=== PATIENT | female | born 1980 | race African-American/Black ===

== ENCOUNTER 2018-08-07 11:50 | Inpatient (IN) | payer BC, OTHER ==
[2018-08-07] MEDS ORDERED: ELECTROLYTE-148 SOLN 1,000 ML IV SCH (12:00)
[2018-08-07 12:34] LABS: BASO % 0.2 % (0-2.0); HEMATOCRIT 35.7 % (32.4-45.2); HEMOGLOBIN 12.5 GM/dL (10.7-15.3); LYMPH % 9.8 % (8-40); MCH 31.3 pg (25.7-33.7); MCHC 35.1 g/dl (32.0-36.0); MEAN CELL VOLUME 89.1 fl (80-96); MEAN PLT VOLUME 9.9 fl (7.5-11.1); MONO % 7.3 % (3.8-10.2); NEUT % 82.7 % (42.8-82.8); PLATELET COUNT 207 K/MM3 (134-434); RDW 14.2 % (11.6-15.6); WHITE BLOOD COUNT 15.3 K/mm3 (4.0-10.0)
[2018-08-07 12:45] LABS: INR 0.87 (0.83-1.09); PROTHROMBIN TIME (PATIENT) 10.2 SEC (9.7-13.0)
[2018-08-07 12:50] VITALS: BMI 30.9
[2018-08-07] MEDS ORDERED: FENTANYL/BUPIVACAINE/NS/PF - PCEA - 50 ML DISP.SYRIN EP ONE ×3 (13:01→18:39)
--- NOTE | 2018-08-07 13:05 | HP ---
Past Medical History - Admission Chief Complaint: contractions History of Present Illness: 38 y/o P0 female with SIUP at 39.3 weeks gestation, c/o contractions. Was seen on 08/03/18 in hospital, cervix was closed, states contractions continued off and on since then. Pt seen in office today, cervix was 7cm dilated with bulging membranes. Advised to go to hospital at that time. complicated only by AMA. GBS negative. History Source: Patient, Medical Record Limitations to Obtaining History: No Limitations - Past Medical History Cardiovascular: No: HTN Pulmonary: No: COPD Gastrointestinal: No: GERD Hepatobiliary: No: Hepatitis B, Hepatitis C Renal/: No: UTI Reproductive: No: Ectopic , PID ...: 3 ...Para: 0 ...Term: 0 ...: 0 ...Spon : 1 ...Induced : 1 ...Multiple Gestation: 0 ...LMP: 11/04/17 ... Weeks Gestation by Dates: 39.3 ...EDC by Dates: 08/11/18 ...EDC by Sono: 08/11/18 Heme/Onc: No: Anemia Infectious Disease: No: HIV, MRSA, STD's Psych: No: Anxiety, Bipolar, Depression Endocrine: No: Hyperthyroidism - Past Surgical History Past Surgical History: Yes: None Hx Myomectomy: No Hx Transabdominal Cerclage: No - Smoking History Smoking history: Never smoked Have you smoked in the past 12 months: No - Alcohol/Substance Use Hx Alcohol Use: No - Social History Usual Living Arrangement: Yes: With Spouse ADL: Independent History of Recent Travel: No Home Medications - Allergies Allergies/Adverse Reactions: Allergies Allergy/AdvReac Type Severity Reaction Status Date / Time No Known Allergies Allergy Verified 08/03/18 15:06 - Home Medications Home Medications: Ambulatory Orders One Tablet 1 tab PO DAILY 08/03/18 Review of Systems - Review of Systems Constitutional: reports: No Symptoms Eyes: reports: No Symptoms HENT: reports: No Symptoms Neck: reports: No Symptoms Cardiovascular: reports: No Symptoms Respiratory: reports: No Symptoms Gastrointestinal: reports: No Symptoms Genitourinary: reports: No Symptoms Breasts: reports: No Symptoms Reported Musculoskeletal: reports: No Symptoms Integumentary: reports: No Symptoms Neurological: reports: No Symptoms Endocrine: reports: No Symptoms Hematology/Lymphatic: reports: No Symptoms Psychiatric: reports: No Symptoms Physical Exam - Maternity Vital Signs: Vital Signs Temperature 97.7 F 08/07/18 11:50 Pulse Rate 104 H 08/07/18 11:50 Respiratory Rate 18 08/07/18 11:50 Blood Pressure 129/87 08/07/18 11:50 O2 Sat by Pulse Oximetry (%) Constitutional: Yes: Well Nourished, No Distress, Calm Eyes: Yes: Conjunctiva Clear, EOM Intact HENT: Yes: Atraumatic, Normocephalic Neck: Yes: Supple, Trachea Midline Cardiovascular: Yes: Regular Rate and Rhythm Lungs: Clear to auscultation Breast(s): Yes: WNL - Abdominal Exam/OB Fundal Height: 39 Number of Fetuses: Single Presentation: Vertex Contractions: Yes Regularity: Regular Intensity: Mod/Strong Monitor Mode: External Heart Rate (range): 125 Category: I Accelerations: Uniform Decelerations: None - Vaginal Exam/OB Vaginal Bleediing: No Amniotic Membrane Status: Bulging Presentation: Vertex/Position Station: -2 - Physical Exam Psychiatric: Yes: Alert, Oriented - Labs Lab Results: CBC, BMP 08/07/18 12:10 Hemorrhage Risk Assessment - Risk Factors Medium Risk Factors: Yes: None High Risk Factors: Yes: None Risk Score: 1 Risk Level: Medium Risk Problem List - Problems (1) Active labor at term Code(s): OAD1650 - Assessment/Plan 38 y/o P0 with SIUP at 39 weeks, labor AFVSS FHTS cat 1 labor, admitted to L&D, for epidural - anesthesia aware GBS negative continue expectant management
[2018-08-07 13:06] LABS: ANION GAP 15 MMOL/L (8-16); BLOOD UREA NITROGEN 6 mg/dL (7-18); CALCIUM 8.9 mg/dL (8.5-10.1); CHLORIDE 126 mmol/L (98-107); CO2 23 mmol/L (21-32); CREATININE 0.7 mg/dL (0.55-1.3); GLUCOSE,RANDOM 82 mg/dL (74-106); POTASSIUM 4.7 mmol/L (3.5-5.1)
[2018-08-07 13:10] LABS: SODIUM 163 mmol/L (136-145)
[2018-08-07] MEDS ORDERED: NALOXONE HCL 0.4 MG/ML VIAL IVPUSH PRN (13:49)
--- NOTE | 2018-08-07 13:55 | PN ---
Ante-Partal Exam - Subjective Vital Signs: Vital Signs Temperature 97.7 F 08/07/18 11:50 Pulse Rate 104 H 08/07/18 11:50 Respiratory Rate 18 08/07/18 11:50 Blood Pressure 129/87 08/07/18 11:50 O2 Sat by Pulse Oximetry (%) Bleeding: Yes Headache: No Visual changes: No Right upper quadrant pain: No - Contractions Contractions: Yes Regularity: Regular Intensity: Mod/Strong - Exam during Labor Heart Rate: 130 Variability: Moderate Category: I Monitor Accelerations: Present Monitor Decelerations: None Exam: Vaginal Dilatation (cm): 8 Effacement (%): 100 Amniotic Membrane Status: Ruptured (AROM for light meconium stained fluid) Presentation: Vertex Station: -2 - Assessment/Plan Assessment/Plan: 38 y/o with SIUP at 39.3 weeks, active labor s/p AROM s/p epidural pitocin augmentation serum Na 163, will repeat as other labs WNL, possible falsly elevated continue active management
[2018-08-07] MEDS ORDERED: OXYTOCIN 30 UNITS in 0.9% NS 30 UNIT/500 ML INFUS.BAG IVPB SCH (14:00)
[2018-08-07] MEDS ORDERED: FENTANYL/BUPIVACAINE/NS/PF - PCEA - 50 ML DISP.SYRIN EP SCH (14:00)
--- NOTE | 2018-08-07 15:12 | PN ---
Ante-Partal Exam - Subjective Subjective: Pt seen/examined feeling some discomfort on the left side Vital Signs: Vital Signs Temperature 98.7 F 08/07/18 14:00 Pulse Rate 85 08/07/18 14:15 Respiratory Rate 18 08/07/18 14:15 Blood Pressure 120/78 08/07/18 14:15 O2 Sat by Pulse Oximetry (%) 98 08/07/18 14:15 Bleeding: No Headache: No Visual changes: No Right upper quadrant pain: No Pain (scale 1-10): 2 - Contractions Contractions: Yes Regularity: Regular Intensity: Mod/Strong - Exam during Labor Heart Rate: 130 Variability: Moderate Category: II Monitor Accelerations: Present Monitor Decelerations: Variable Exam: Vaginal Dilatation (cm): 8 Effacement (%): 100 Amniotic Membrane Status: Ruptured Amniotic Fluid: Meconium Stained (light meconium) Presentation: Vertex Station: -2 - Assessment/Plan Assessment/Plan: 38 y/o P0 with SIUP at 39 weeks active labor s/p AROM, having recurrent variable decelerations, still moderate variability and accels/good scalp stim continue close observation if continues to have decelerations without cervical change may need to discuss delivery
[2018-08-07] MEDS ORDERED: BUPIVACAINE HCL/PF 0.25% (2.5MG/ML) 10 ML VIAL ONE (15:57)
[2018-08-07] MEDS ORDERED: OXYTOCIN 20 UNITS in 0.9% NS 20 UNIT/1,000 ML INFUS.BAG IV ONE (16:50)
[2018-08-07] MEDS ORDERED: LIDOCAINE HCL 1% PRESERVATIVE FREE - 30ML VIAL ONE (16:50)
--- NOTE | 2018-08-07 19:09 | PN ---
Ante-Partal Exam - Subjective Subjective: Pt comfortable with contractions. Vital Signs: Vital Signs Temperature 98.2 F 08/07/18 17:00 Pulse Rate 113 H 08/07/18 18:45 Respiratory Rate 18 08/07/18 18:45 Blood Pressure 141/83 08/07/18 18:45 O2 Sat by Pulse Oximetry (%) 98 08/07/18 18:45 Bleeding: Yes Bleeding Description: Mild Headache: No Visual changes: No Right upper quadrant pain: No - Contractions Contractions: Yes Regularity: Regular Intensity: Mod/Strong - Exam during Labor Heart Rate: 125 Variability: Moderate Category: I Monitor Accelerations: Absent Monitor Decelerations: None Exam: Vaginal Dilatation (cm): 10 Effacement (%): 100 Presentation: Vertex Station: 0 - Assessment/Plan Assessment/Plan: pt fully dilated at approx 1830, began pushing at that time with little progress. Will allow passive descent and retry pushing in approx 60 mins.
[2018-08-07] MEDS ORDERED: METHYLERGONOVINE MALEATE 0.2 MG/1 ML AMP IM PRN (20:40)
[2018-08-07] MEDS ORDERED: BENZOCAINE 20% 57 GM BOTTLE TP PRN (20:40)
[2018-08-07] MEDS ORDERED: BISACODYL 10 MG SUPP.RECT RC PRN (20:40)
[2018-08-07] MEDS ORDERED: BENZOCAINE 28 GM HEMORRHOIDAL OINTMENT TP PRN (20:40)
[2018-08-07] MEDS ORDERED: WITCH HAZEL 50% (TUCKS) 40 PAD/JAR PAD TP PRN (20:40)
--- NOTE | 2018-08-07 20:40 | PN ---
Delivery - Delivery Vaginal Delivery: No Problems Type of Anesthesia: Epidural Episiotomy/Laceration: 2nd degree EBL (cc): 300 Delivery, Single - Stages of Labor Date of Delivery: 08/07/18 Time of Delivery: 20:20 Date Placenta Delivered: 08/07/18 Placenta: Yes: Spontaneous - Condition of Rod Finisher/Cat Swamper Present: No Infant Gender: Male Position: Left, OA - 1 Minute Total Score: 8 5 Minutes Total Score: 9 - [place] Feeding Plan Initial Plan: Elected not to breastfeed exclusively throughout hospitalization Remarks - Remarks Remarks: Uncomplicated from DANIELE position after delivery of head, nuchal cord noted, clamped and cut at perineum remainder of (anterior shoulder - right) delivered with ease placenta delivered with 3vc, in tact, spontaneously delivered 2nd degree laceration repaired with 2-0 chromic sponge count correct needle count correct mom stable baby to well baby nursery
[2018-08-07] MEDS ORDERED: OXYTOCIN 20 UNITS in 0.9% NS 20 UNIT/1,000 ML INFUS.BAG IV SCH (20:45)
[2018-08-08 07:34] LABS: BASO % 0.1 % (0-2.0); HEMATOCRIT 28.3 % (32.4-45.2); HEMOGLOBIN 9.3 GM/dL (10.7-15.3); LYMPH % 8.2 % (8-40); MCH 29.8 pg (25.7-33.7); MCHC 32.9 g/dl (32.0-36.0); MEAN CELL VOLUME 90.8 fl (80-96); MEAN PLT VOLUME 10.3 fl (7.5-11.1); MONO % 10.2 % (3.8-10.2); NEUT % 81.5 % (42.8-82.8); PLATELET COUNT 151 K/MM3 (134-434); RBC 3.11 M/mm3 (3.60-5.2); WHITE BLOOD COUNT 20.5 K/mm3 (4.0-10.0)
[2018-08-08] MEDS: IBUPROFEN 600 MG TABLET (FP) PO PRN (09:25)
[2018-08-08] MEDS: PRENATAL VITAMINS W/ FOLIC ACID TABLET (FP) PO SCH (09:25)
[2018-08-08] MEDS: ACETAMINOPHEN 325 MG TABLET (FP) PO PRN (09:26)
[2018-08-08 11:44] LABS: ANISOCYTOSIS 2+; MACROCYTOSIS 0; OVALOCYTE 1+; PLATELET ESTIMATE DECREASED
[2018-08-08] MEDS ORDERED: SENNOSIDES/DOCUSATE COMBO (SENNA PLUS) TABLET (UD) PO PRN (22:00)
--- NOTE | 2018-08-09 07:07 | PN ---
Post Progress Note - Subjective Subjective: Pt. seen and evaluated and doing well. ambulating, voiding and passing flatus. tolerating diet. lochia moderate but decreasing no complaints. Post Day: 1 Type of Delivery: Vital Signs: Vital Signs Temperature 98.9 F 08/08/18 20:10 Pulse Rate 105 H 08/08/18 20:10 Respiratory Rate 20 08/08/18 20:10 Blood Pressure 125/60 08/08/18 20:10 O2 Sat by Pulse Oximetry (%) 99 08/07/18 22:15 Uterus: Yes: Fundus Firm, Fundus below umbilicus Abdomen/GI: Yes: Abdomen soft Lochia: Yes: Rubra Lochia, amount: Moderate Extremities: Yes: Calves non-tender Perineum: Yes: Laceration Activity: Ambulating - Labs Labs: CBC WBC 20.5 K/mm3 (4.0-10.0) H 08/08/18 05:15 RBC 3.11 M/mm3 (3.60-5.2) L 08/08/18 05:15 Hgb 9.3 GM/dL (10.7-15.3) L 08/08/18 05:15 Hct 28.3 % (32.4-45.2) L D 08/08/18 05:15 MCV 90.8 fl (80-96) 08/08/18 05:15 MCH 29.8 pg (25.7-33.7) 08/08/18 05:15 MCHC 32.9 g/dl (32.0-36.0) 08/08/18 05:15 RDW 14.0 % (11.6-15.6) 08/08/18 05:15 Plt Count 151 K/MM3 (134-434) D 08/08/18 05:15 MPV 10.3 fl (7.5-11.1) 08/08/18 05:15 Absolute Neuts (auto) 16.7 K/mm3 (1.5-8.0) H 08/08/18 05:15 Neutrophils % 81.5 % (42.8-82.8) 08/08/18 05:15 Neutrophils % (Manual) 87.9 % (42.8-82.8) H 08/08/18 05:15 Band Neutrophils % 2.0 % 08/08/18 05:15 Lymphocytes % 8.2 % (8-40) 08/08/18 05:15 Lymphocytes % (Manual) 3.0 % (8-40) L 08/08/18 05:15 Monocytes % 10.2 % (3.8-10.2) 08/08/18 05:15 Monocytes % (Manual) 7 % (3.8-10.2) 08/08/18 05:15 Eosinophils % 0.0 % (0-4.5) 08/08/18 05:15 Eosinophils % (Manual) 0.0 % (0-4.5) 08/08/18 05:15 Basophils % 0.1 % (0-2.0) 08/08/18 05:15 Basophils % (Manual) 0.0 % (0-2.0) 08/08/18 05:15 Myelocytes % (Man) 0 % (0-2) 08/08/18 05:15 Promyelocytes % (Man) 0 % (0-2) 08/08/18 05:15 Blast Cells % (Manual) 0 % (0-0) 08/08/18 05:15 Nucleated RBC % 0 % (0-0) 08/08/18 05:15 Metamyelocytes 0 % (0-2) 08/08/18 05:15 Hypochromia 0 08/08/18 05:15 Platelet Estimate Decreased 08/08/18 05:15 Platelet Comment Present 08/08/18 05:15 Polychromasia 2+ 08/08/18 05:15 Poikilocytosis 0 08/08/18 05:15 Anisocytosis 2+ 08/08/18 05:15 Microcytosis 0 08/08/18 05:15 Macrocytosis 0 08/08/18 05:15 Ovalocytes 1+ 08/08/18 05:15 Abdulaziz Cells 2+ 08/08/18 05:15 Problem List - Problems (1) Active labor at term Code(s): LRD1130 - (2) Vaginal delivery Code(s): O80 - ENCOUNTER FOR FULL-TERM UNCOMPLICATED DELIVERY Assessment/Plan post day 1 doing well regular diet PO pain meds ambulation routine care
[2018-08-09] MEDS ORDERED: CEFAZOLIN 1 GM/D5W 1 GM/50 ML BAG IVPB ONE (07:30)
--- NOTE | 2018-08-09 07:39 | DS ---
Physical Exam-PRODUCT CONSULTANT Vital Signs: Vital Signs Temperature 98.9 F 08/08/18 20:10 Pulse Rate 105 H 08/08/18 20:10 Respiratory Rate 20 08/08/18 20:10 Blood Pressure 125/60 08/08/18 20:10 O2 Sat by Pulse Oximetry (%) 99 08/07/18 22:15 Constitutional: Yes: No Distress Eyes: Yes: Conjunctiva Clear HENT: Yes: Atraumatic Neck: Yes: Supple Cardiovascular: Yes: Regular Rate and Rhythm Respiratory: Yes: Regular Gastrointestinal: Yes: Normal Bowel Sounds Vaginal Exam: Yes: Normal Cervix: Yes: Normal Uterus: Yes: Firm ....Post : Yes: Uterus firm Extremities: Yes: WNL Neurological: Yes: Alert, Oriented ...Motor Strength: WNL Psychiatric: Yes: Alert, Oriented Labs: CBC, BMP 08/08/18 05:15 08/07/18 14:20 Delivery - Delivery Vaginal Delivery: No Problems Type of Anesthesia: Epidural Episiotomy/Laceration: 2nd degree EBL (cc): 300 Delivery, Single - Stages of Labor Date 1st Stage Initiatied: 08/07/18 Time 1st Stage Initiated: 00:30 Date 2nd Stage Initiated: 08/07/18 Time 2nd Stage Initiated: 18:30 Date of Delivery: 08/07/18 Time of Delivery: 20:20 Time Placenta Delivered: 20:29 Placenta: Yes: Spontaneous - Condition of Door Clamper/Radiology Resident Present: No Infant Gender: Male Weight: 7 lb 5 oz Position: Left, OA Total Hours ROM (Hrs/Mins): 6 hours 49 minutes - 1 Minute Total Score: 9 5 Minutes Total Score: 9 - [place] Feeding Plan Initial Plan: Elected not to breastfeed exclusively throughout hospitalization Discharge Summary Reason For Visit: LABOR Current Active Problems Active labor at term (Acute) Vaginal delivery (Acute) Procedures: Principal: Normal vaginal delivery Hospital Course: Patient is status post vaginal delivery. She received one dose of IV antibiotic; no blood transfusion required. Condition: Good - Instructions Diet, Activity, Other Instructions: Regular diet No douching, no sexual intercourse x 6 weeks. F/U with MD in 6 weeks Disposition: HOME - Home Medications Comprehensive Discharge Medication List: Ambulatory Orders One Tablet 1 tab PO DAILY 08/03/18
[2018-08-09] MEDS: IBUPROFEN 600 MG TABLET (FP) PO PRN (09:01)
[2018-08-09] MEDS: ACETAMINOPHEN 325 MG TABLET (FP) PO PRN (09:01)
[2018-08-09] MEDS: PRENATAL VITAMINS W/ FOLIC ACID TABLET (FP) PO SCH (09:02)
[2018-08-09 09:04] VITALS: BP 129/79; PULSE 100; TEMP 98.8
[2018-08-09 11:10] LABS: BASO % 0.5 % (0-2.0); EOS % 0.2 % (0-4.5); HEMATOCRIT 26.3 % (32.4-45.2); HEMOGLOBIN 8.5 GM/dL (10.7-15.3); LYMPH % 15.2 % (8-40); MCH 29.5 pg (25.7-33.7); MCHC 32.4 g/dl (32.0-36.0); MEAN CELL VOLUME 91.1 fl (80-96); MEAN PLT VOLUME 9.4 fl (7.5-11.1); MONO % 7.7 % (3.8-10.2); NEUT % 76.4 % (42.8-82.8); PLATELET COUNT 161 K/MM3 (134-434); RBC 2.89 M/mm3 (3.60-5.2); RDW 13.9 % (11.6-15.6); WHITE BLOOD COUNT 14.6 K/mm3 (4.0-10.0)
== END 2018-08-09 13:10 | disposition home or self-care (01) | DRG 807 ==
LOC: JLDR 11:50 → J3W 23:58
PROVIDERS: ADMIT Obstetrics & Gynecology; ATTEND Obstetrics & Gynecology
PROC: 10E0XZZ Delivery of Products of Conception, External Approach (ICD-10-PCS; principal; 2018-08-07)
PROC: 0KQM0ZZ Repair Perineum Muscle, Open Approach (ICD-10-PCS; 2018-08-07)
DX: O76 Abnormality in fetal heart rate and rhythm complicating labor and delivery (principal); Z37.0 Single live birth; O70.1 Second degree perineal laceration during delivery; Z3A.39 39 weeks gestation of pregnancy
CPT/HCPCS: 36415; 59409; 80048; 84295; 85025; 85610; 85730; 86593; 86850; 86900; 86901; 87389

== ENCOUNTER 2020-06-03 05:55 | Inpatient (IN) | payer BC, OTHER ==
[2020-06-03] MEDS ORDERED: BUTORPHANOL TARTRATE 1 MG/ML VIAL IVPB PRN (07:24)
[2020-06-03] MEDS ORDERED: PROMETHAZINE HCL 25 MG/1 ML VIAL IVPUSH ONE (07:24)
[2020-06-03] MEDS ORDERED: IBUPROFEN 600 MG TABLET (FP) PO PRN (07:27)
[2020-06-03] MEDS ORDERED: WITCH HAZEL 50% (TUCKS) 40 PAD/JAR PAD TP PRN (07:27)
[2020-06-03] MEDS ORDERED: ACETAMINOPHEN 325 MG TABLET (FP) PO PRN (07:27)
[2020-06-03] MEDS ORDERED: METHYLERGONOVINE MALEATE 0.2 MG/1 ML AMP IM PRN (07:27)
[2020-06-03] MEDS ORDERED: BENZOCAINE 20% 57 GM BOTTLE TP PRN (07:27)
[2020-06-03] MEDS ORDERED: BISACODYL 10 MG SUPP.RECT PR PRN (07:27)
[2020-06-03] MEDS ORDERED: BENZOCAINE 28 GM HEMORRHOIDAL OINTMENT RC PRN (07:27)
[2020-06-03] MEDS ORDERED: ELECTROLYTE-148 SOLN 1,000 ML IV SCH (07:30)
[2020-06-03 07:34] VITALS: BMI 31.8
[2020-06-03 08:41] LABS: BASO % 0.1 % (0-2.0); EOS % 0.4 % (0-4.5); HEMATOCRIT 38.5 % (32.4-45.2); HEMOGLOBIN 12.5 GM/dL (10.7-15.3); LYMPH % 15.3 % (8-40); MCH 29.5 pg (25.7-33.7); MCHC 32.5 g/dl (32.0-36.0); MEAN CELL VOLUME 90.9 fl (80-96); MEAN PLT VOLUME 9.4 fl (7.5-11.1); NEUT % 77.2 % (42.8-82.8); PLATELET COUNT 205 K/MM3 (134-434); RBC 4.23 M/mm3 (3.60-5.2); RDW 14.2 % (11.6-15.6); WHITE BLOOD COUNT 14.3 K/mm3 (4.0-10.0)
[2020-06-03] MEDS ORDERED: PCA PUMP NR ONE (08:41)
[2020-06-03] MEDS ORDERED: FENTANYL/BUPIVACAINE/NS/PF - PCEA - 50 ML DISP.SYRIN EP ONE ×2 (08:41→14:20)
[2020-06-03 08:42] LABS: INR 0.89 (0.83-1.09)
[2020-06-03 08:44] LABS: ACTIVATED PTT 27.8 SECONDS (25.2-36.5)
[2020-06-03 08:55] LABS: POTASSIUM 3.9 mmol/L (3.5-5.1)
[2020-06-03 08:57] LABS: CALCIUM 9.6 mg/dL (8.5-10.1)
[2020-06-03 08:58] LABS: BLOOD UREA NITROGEN 9.3 mg/dL (7-18)
[2020-06-03] MEDS ORDERED: BUPIVACAINE HCL/PF 0.25% (2.5MG/ML) 10 ML VIAL ONE (09:00)
[2020-06-03 09:02] LABS: CREATININE 0.7 mg/dL (0.55-1.3)
[2020-06-03] MEDS ORDERED: NALOXONE HCL 0.4 MG/ML VIAL IVPUSH PRN (09:24)
[2020-06-03] MEDS ORDERED: FENTANYL/BUPIVACAINE/NS/PF - PCEA - 50 ML DISP.SYRIN EP SCH (09:30)
[2020-06-03] MEDS ORDERED: OXYTOCIN 30 UNITS in 0.9% NS 30 UNIT/500 ML INFUS.BAG IVPB ONE (10:15)
[2020-06-03] MEDS ORDERED: OXYTOCIN 30 UNITS in 0.9% NS 30 UNIT/500 ML INFUS.BAG IVPB SCH ×2 (11:00→11:15)
[2020-06-03] MEDS ORDERED: OXYTOCIN 20 UNITS in 0.9% NS 40 UNIT/2,000 ML INFUS.BAG IV ONE (15:07)
[2020-06-03] MEDS ORDERED: LIDOCAINE HCL 1% PRESERVATIVE FREE - 30ML VIAL ONE (15:07)
[2020-06-03 17:26] LABS: CORD HCO3 17.1 mmHg (20-29); CORD PCO2 34.3 mmHg (30-78); CORD pH 7.316 (7.14-7.44)
[2020-06-03 17:27] LABS: CORD HCO3 19.6 mmHg (20-29); CORD pH 7.318 (7.14-7.44)
[2020-06-03] MEDS ORDERED: ACETAMINOPHEN 325 MG TABLET (FP) ONE (17:40)
[2020-06-03] MEDS ORDERED: IBUPROFEN 600 MG TABLET (FP) PO ONE (17:40)
[2020-06-03] MEDS ORDERED: OXYTOCIN 20 UNITS in 0.9% NS 20 UNIT/1,000 ML INFUS.BAG IV SCH (18:45)
[2020-06-03 21:16] LABS: HIV INTERPRETATION NEGATIVE (NEGATIVE)
[2020-06-04 08:09] LABS: RUBELLA ANTIBODY,IGM <20.0 AU/mL (0.0-19.9)
[2020-06-04 08:29] LABS: BASO % 0.3 % (0-2.0); EOS % 0.4 % (0-4.5); HEMATOCRIT 30.4 % (32.4-45.2); LYMPH % 15.5 % (8-40); MCH 30.3 pg (25.7-33.7); MCHC 33.1 g/dl (32.0-36.0); MEAN CELL VOLUME 91.6 fl (80-96); MEAN PLT VOLUME 9.9 fl (7.5-11.1); MONO % 8.7 % (3.8-10.2); NEUT % 75.1 % (42.8-82.8); PLATELET COUNT 161 K/MM3 (134-434); RBC 3.31 M/mm3 (3.60-5.2); RDW 14.3 % (11.6-15.6); WHITE BLOOD COUNT 16.8 K/mm3 (4.0-10.0)
[2020-06-04] MEDS ORDERED: FLU VACCINE (FLULAVAL) PF 60 MCG/0.5 ML SYRINGE 2020-2021 IM ONE (10:00)
[2020-06-05 11:17] VITALS: BP 129/84; PULSE 91; TEMP 98.3
== END 2020-06-05 12:45 | disposition home or self-care (01) | DRG 807 ==
LOC: JDEL 05:55 → JLDR 06:50 → J3W 17:30
PROVIDERS: ADMIT Obstetrics & Gynecology; ATTEND Obstetrics & Gynecology
PROC: 10E0XZZ Delivery of Products of Conception, External Approach (ICD-10-PCS; principal; 2020-06-03)
PROC: 0HQ9XZZ Repair Perineum Skin, External Approach (ICD-10-PCS; 2020-06-03)
PROC: 0W8NXZZ Division of Female Perineum, External Approach (ICD-10-PCS; 2020-06-03)
DX: O70.0 First degree perineal laceration during delivery (principal); Z3A.40 40 weeks gestation of pregnancy; Z37.0 Single live birth
CPT/HCPCS: 36415; 36600; 59409; 80048; 82803; 85025; 85610; 85730; 86762; 86780; 86850; 86900; 86901; 87389; G0008; Q2036